=== PATIENT | male | born 1985 | race Caucasian/White ===

== ENCOUNTER 2022-10-02 08:41 | Outpatient (CLI) | payer OTHER ==
[~2022-10-02 08:41] MED LIST: KETO10TA2 PO; NASONEX17 GM NS; NORFLEX100MG PO; XYZAL5 MG PO; ZITHROMAX500 MG PO
== END 2022-10-02 10:04 | disposition home or self-care (01) ==
LOC: RAD 08:41
DX: M99.01 Segmental and somatic dysfunction of cervical region (principal); M99.02 Segmental and somatic dysfunction of thoracic region; M99.03 Segmental and somatic dysfunction of lumbar region